=== PATIENT | female | born 1980 | race Caucasian/White ===

== ENCOUNTER 2016-07-01 07:39 | Day surgery (SDC) | payer OTHER ==
[2016-07-01] MEDS ORDERED: LACTATED RINGERS 1,000 ML IV ONE ×2 (07:57→10:15)
[2016-07-01] MEDS ORDERED: MIDAZOLAM 2 MG/2 ML VIAL IVP ONE (09:08)
[2016-07-01] MEDS ORDERED: fentaNYL 250 MCG/5 ML VIAL IVP ONE (09:08)
== END 2016-07-01 07:40 | disposition home or self-care (01) ==
PROC: 0DB68ZX Excision of Stomach, Via Natural or Artificial Opening Endoscopic, Diagnostic (ICD-10-PCS; 2016-07-01)
PROC: 0DB28ZX Excision of Middle Esophagus, Via Natural or Artificial Opening Endoscopic, Diagnostic (ICD-10-PCS; principal; 2016-07-01 09:00)
DX: R10.11 Right upper quadrant pain (principal); K21.9 Gastro-esophageal reflux disease without esophagitis; K31.89 Other diseases of stomach and duodenum
CPT/HCPCS: 43239; 81025; J3010; J7120

== ENCOUNTER 2016-09-10 18:38 | Emergency (ER) | payer OTHER ==
[2016-09-10] MEDS ORDERED: SODIUM CHLORIDE 0.9% 1,000 ML IV ONE (19:14)
[2016-09-10] MEDS ORDERED: KETOROLAC 60 MG/2 ML VIAL IVP STA (19:15)
[2016-09-10] MEDS ORDERED: KETOROLAC 30 MG/ML VIAL ONE (19:26)
[2016-09-10] MEDS ORDERED: IOPAMIDOL-300 100 ML VIAL IVP ONE (20:13)
[2016-09-10] MEDS ORDERED: cefTRIAXone 1 GM in SODIUM CHLORIDE 0.9% MINIBAG 100 ML IV STA (21:10)
[2016-09-10] MEDS ORDERED: cefTRIAXone 1 GM VIAL ONE (21:12)
== END 2016-09-10 21:46 | disposition home or self-care (01) ==
DX: N12 Tubulo-interstitial nephritis, not specified as acute or chronic (principal); K76.9 Liver disease, unspecified; K76.0 Fatty (change of) liver, not elsewhere classified; E11.9 Type 2 diabetes mellitus without complications; Z79.84 Long term (current) use of oral hypoglycemic drugs; K21.9 Gastro-esophageal reflux disease without esophagitis
CPT/HCPCS: 36415; 74177; 80053; 81001; 81025; 83690; 85025; 87086; 96374; 96375; 99283; 99285; Q9967

== ENCOUNTER 2016-09-14 13:44 | Emergency (ER) | payer OTHER | END 2016-09-14 16:27 | disposition home or self-care (01) | DX: N12 Tubulo-interstitial nephritis, not specified as acute or chronic (principal); R03.0 Elevated blood-pressure reading, without diagnosis of hypertension; E11.9 Type 2 diabetes mellitus without complications; K21.9 Gastro-esophageal reflux disease without esophagitis; Z79.84 Long term (current) use of oral hypoglycemic drugs ==

== ENCOUNTER 2017-11-03 08:30 | Emergency (ER) | payer OTHER ==
--- NOTE | 2017-11-03 10:18 | ED Physician Documentation ---
PD HPI UPPER EXT INJURY - Stated complaint Stated Complaint: SWOLLEN ARM/POST PROCEDURE - Chief complaint Chief Complaint: Ext Problem - History obtained from History obtained from: Patient - History of Present Illness Location: Right, Forearm Type of injury: Other (angiogram) Where injury occurred: Other ([facility]) Timing - onset: Yesterday Timing - duration: Days (1) Timing - details: Gradual onset, Still present Improved by: Rest, Immobilization Worsened by: Moving, Palpating Associated symptoms: Tingling, Swelling Contributing factors: No: Anticoagulated Similar symptoms before: Has not had sx before Recently seen: Other - Additonal information Additional information: 37-year-old female had an angiogram done through her right wrist through the radial artery 2 days ago and she is come to the emergency department today with some swelling to the forearm some tenderness and some numbness to her fingers. She is able to move the fingers she does not have exquisite pain and she does have sensation distally. She has adequate blood flow distally. Review of Systems Constitutional: denies: Fever Eyes: denies: Decreased vision Ears: denies: Ear pain Nose: denies: Congestion Cardiac: denies: Chest pain / pressure Respiratory: denies: Dyspnea, Cough GI: denies: Nausea, Vomiting Skin: denies: Rash Musculoskeletal: reports: Extremity pain, Extremity swelling. denies: Neck pain Neurologic: reports: Numbness. 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, Other Cardiovascular: Other HEENT: Other - Present Medications Home Medications: Ambulatory Orders Medication Instructions Recorded Confirmed Metformin HCl [Glumetza] 1,000 mg PO BID 09/25/12 09/14/16 Gabapentin 300 mg PO DAILY 09/10/16 09/14/16 Exenatide Microspheres [Bydureon 11/03/17 Pen] Glipizide 4 mg 11/03/17 - Allergies Allergies/Adverse Reactions: Allergies Allergy/AdvReac Type Severity Reaction Status Date / Time adhesive tape Allergy Mild Rash Verified 11/03/17 08:47 insulin detemir Allergy Mild Unknown Verified 11/03/17 08:47 [From Levemir U-100 Insulin] erythromycin base Allergy fever, Verified 09/14/16 14:00 [Erythromycin Base] vomiting - Social History Does the pt smoke?: No Smoking Status: Never smoker Does the pt drink ETOH?: No Does the pt have substance abuse?: No - Immunizations Immunizations are current?: Yes - POLST Patient has POLST: No PD ED PE NORMAL - Vitals Vital signs reviewed: Yes (hypertensive mild diastolic only ) - General General: Alert and oriented X 3, No acute distress, Well developed/nourished - HEENT HEENT: Atraumatic, PERRL, EOMI - Neck Neck: Supple, no meningeal sign - Respiratory Respiratory: No respiratory distress - Derm Derm: Normal color, Warm and dry, No rash - Extremities Extremities: No deformity, Other (There is mild swelling of the forearm on the right with firmness but not hard and she is able to move the fingers without much increase in pain and the distal n/v is intact. ) - Neuro Neuro: No motor deficit, No sensory deficit Eye Opening: Spontaneous Motor: Obeys Commands Verbal: Oriented GCS Score: 15 - Psych Psych: Normal mood, Normal affect Results - Vitals Vitals: Vital Signs - 24 hr 11/03/17 11/03/17 08:41 13:00 Temperature 36.1 C L Heart Rate 99 90 Respiratory 18 18 Rate Blood Pressure 117/85 H 116/84 H O2 Saturation 100 100 Oxygen O2 Source Room air - Rads (name of study) duplex upper right Radiology: Prelim report reviewed (Impression: 1. Right upper extremity arteries show normal velocities and spectral waveforms without evidence of focal stenosis or occlusion. No pseudoaneurysm or hematoma is evident. No sonographic findings to explain swelling.), EMP read indepedently, See rad report PD MEDICAL DECISION MAKING - ED course Complexity details: reviewed results, re-evaluated patient, considered differential, d/w patient, d/w family, d/w outside solar sales consultant (labor relations officer for [facility]. ) ED course: 37-year-old female with a recent arterial procedure on the right forearm has some mild swelling to the arm and no evidence of hematoma or pseudoaneurysm or abnormality of the artery itself. She is administered dexamethasone orally for reduction in the swelling and she is warned strictly about reasons to return to the emergency department regarding compartment syndrome. The on-call grave cleaner for Dr. Adam was consulted in the case and recommends the warnings. - Sepsis Event Vital Signs: Vital Signs - 24 hr 11/03/17 11/03/17 08:41 13:00 Temperature 36.1 C L Heart Rate 99 90 Respiratory 18 18 Rate Blood Pressure 117/85 H 116/84 H O2 Saturation 100 100 Oxygen O2 Source Room air Departure - Departure Disposition: 01 Home, Self Care Clinical Impression: Swelling of right extremity Condition: Stable Instructions: ED Compartment Syndrome At Risk For Follow-Up: DENISE FRIAS [Primary Care Provider] - Discharge Date/Time: 11/03/17 13:00
--- NOTE | 2017-11-03 11:58 | Ultrasound Report ---
Procedure Date: 11/03/2017 Accession Number: [id number] / [id number] Procedure: US - Duplex Upr Ext Arterial RT CPT Code: FULL RESULT: EXAM: RIGHT UPPER EXTREMITY ARTERIAL DOPPLER ULTRASOUND EXAM DATE: 11/03/2017 10:47 AM. CLINICAL HISTORY: Swelling post angio to radial artery. COMPARISON: None. TECHNIQUE: Real-time sonographic vascular imaging was performed by the orthodontist vice president, utilizing color-flow, Doppler flow, and spectral analysis. Multiple phlebotomy services representative static images were saved for review. FINDINGS: RIGHT Subclavian Prox: 105 cm/s Subclavian Dist: 70 cm/s Axillary Mid: 66 cm/s Brachial Prox: 72 cm/s Brachial Dist: 70 cm/s Radial Prox: 43 cm/s Radial Dist: 69 cm/s Ulnar Prox: 50 cm/s Ulnar Dist: 61 cm/s IMPRESSION: 1. Right upper extremity arteries show normal velocities and spectral waveforms without evidence for focal stenosis or occlusion. 2. No pseudoaneurysm or hematoma evident. 3. No sonographic findings to explain swelling. RADIA
[2017-11-03] MEDS ORDERED: DEXAMETHASONE 10 MG/ML VIAL PO STA (12:26)
[2017-11-03] MEDS ORDERED: CHERRY SYRUP 10 ML UDC PO ONE (12:47)
[2017-11-03 13:01] VITALS: BP 116/84
== END 2017-11-03 13:00 | disposition home or self-care (01) ==
LOC: ED 08:30
DX: R22.31 Localized swelling, mass and lump, right upper limb (principal); E11.9 Type 2 diabetes mellitus without complications; Z79.84 Long term (current) use of oral hypoglycemic drugs
CPT/HCPCS: 93931; 99283; A9270

== ENCOUNTER 2017-11-10 08:33 | Emergency (ER) | payer OTHER ==
[2017-11-10 08:42] VITALS: BP 122/84
[2017-11-10] MEDS: DEXAMETHASONE 10 MG/ML VIAL PO STA (09:14)
--- NOTE | 2017-11-10 09:14 | ED Physician Documentation ---
PD HPI UPPER EXT INJURY - Stated complaint Stated Complaint: R ARM PX - Chief complaint Chief Complaint: General - History obtained from History obtained from: Patient - History of Present Illness Location: Right, Forearm Type of injury: Other (angio done through the radial artery) Where injury occurred: Other ([place]) Timing - onset: How many days ago (9) Timing - duration: Days (9) Timing - details: Abrupt onset, Still present Improved by: Rest, Meds Worsened by: Moving, Palpating Associated symptoms: Weakness, Numbness Contributing factors: No: Anticoagulated Similar symptoms before: Has not had sx before Recently seen: Emergency Dept, Other - Additonal information Additional information: 37-year-old female has had a recent angiogram done through the right radial artery. 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 She had some firmness to the forearm and an ultrasound done demonstrated no evidence of acute bleeding or pseudoaneurysm. She was administered a dose of dexamethasone here in the emergency department 1 week ago and this resulted in improvement in her symptoms right away and a decrease in the firmness to the swelling but she continues to have pain. She is having some numbness to her fingertips she has not regained full purchaser automotive parts strength and she went to see her primary care doctor who sent her back to the emergency department for further treatment. She has called the oxygen furnace operator's office and they have referred her back to her primary. 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 Review of Systems Constitutional: denies: Fever Eyes: denies: Decreased vision Ears: denies: Ear pain Nose: denies: Congestion Cardiac: denies: Palpitations Respiratory: denies: Dyspnea, Cough GI: denies: Vomiting Musculoskeletal: reports: Extremity pain. denies: Neck pain, Back pain, Extremity swelling Neurologic: reports: Focal weakness, Numbness. 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, Other Cardiovascular: Other HEENT: Other - Present Medications Home Medications: Ambulatory Orders Medication Instructions Recorded Confirmed Metformin HCl [Glumetza] 1,000 mg PO BID 09/25/12 09/14/16 Gabapentin 300 mg PO DAILY 09/10/16 09/14/16 Exenatide Microspheres [Bydureon 2 mg SUBQ ONCE 11/03/17 Pen] Glipizide 4 mg 11/03/17 HYDROcod/ACETAM 5/325 [[place] 5/325] 1 - 2 ea PO Q6H PRN #15 tablet 11/10/17 - Allergies Allergies/Adverse Reactions: Allergies Allergy/AdvReac Type Severity Reaction Status Date / Time adhesive tape Allergy Mild Rash Verified 11/10/17 08:42 insulin detemir Allergy Mild Unknown Verified 11/10/17 08:42 [From Levemir U-100 Insulin] erythromycin base Allergy fever, Verified 11/10/17 08:42 [Erythromycin Base] vomiting - Social History Does the pt smoke?: No Smoking Status: Never smoker Does the pt drink ETOH?: No Does the pt have substance abuse?: No - Immunizations Immunizations are current?: Yes - POLST Patient has POLST: No PD ED PE NORMAL - Vitals Vital signs reviewed: Yes (diastolic hypertension mild ) - General General: Alert and oriented X 3, No acute distress, Well developed/nourished - HEENT HEENT: Atraumatic, PERRL - Neck Neck: Supple, no meningeal sign - Respiratory Respiratory: No respiratory distress - Derm Derm: Normal color, Warm and dry, No rash - Extremities Extremities: No deformity, No edema, Other (The right forearm is palpated and now is less tender and no longer firm. There is no specific swelling noted to the forearm and the distal vascular is intact. There is subjective numbess to the finger tips of the index and middle fingers and the ulnar aspect of the thumb. There is decreased strength to the purchaser automotive parts on the right with preserved articulation. ) - Neuro Neuro: Alert and oriented X 3, hvac technician residential 2-12 intact, Normal speech Eye Opening: Spontaneous Motor: Obeys Commands Verbal: Oriented GCS Score: 15 - Psych Psych: Normal mood, Normal affect Results - Vitals Vitals: Vital Signs - 24 hr 11/10/17 08:38 Temperature 36.6 C Heart Rate 87 Respiratory 18 Rate Blood Pressure 122/84 H O2 Saturation 99 Oxygen O2 Source Room air Procedures - Splint (location) right forearm Splint applied by: Tech Type of splint: Fiberglass, Volar cock up Other: Patient tolerated well, No complications, Neurovascular intact, Good alignment PD MEDICAL DECISION MAKING - ED course Complexity details: reviewed old records, reviewed results, re-evaluated patient , considered differential, d/w patient ED course: 37 y/o female with forearm pain after an angiogram has improvement in her exam and by interval history she is improved but not resolved. The firmness to the forearm is now resolved and the fear of compartment syndrome is over. She may take another week to resolve symptoms and we will be aggressive about supportive care. We have placed her into a volar splint and given a second dose of decadron and we will provider her with some pain medication for use at night and we have an expectation of continued improvement over the next week followed by slower improvement over the next month. She feels she will be able to get along at work in her current state. - Sepsis Event Vital Signs: Vital Signs - 24 hr 11/10/17 08:38 Temperature 36.6 C Heart Rate 87 Respiratory 18 Rate Blood Pressure 122/84 H O2 Saturation 99 Oxygen O2 Source Room air Departure - Departure Disposition: 01 Home, Self Care Clinical Impression: Swelling of right extremity Condition: Stable Instructions: ED Contusion Soft Tissue Follow-Up: DENISE FRIAS [Primary Care Provider] - Prescriptions: HYDROcod/ACETAM 5/325 [[place] 5/325] 1 - 2 ea PO Q6H PRN #15 tablet PRN Reason: Pain Comments: Today it appears that your risk for compartment syndrome is over. We expect this will still take another week to improve further and following that it may be a longer period of time to Complete resolution of symptoms of numbness to the fingertips and complete strength of the purchaser automotive parts. Wear the splint for comfort and he may remove it at any time and I encouraged removal several times per day for range of motion exercises.
[2017-11-10] MEDS ORDERED: CHERRY SYRUP 10 ML UDC PO ONE (09:24)
== END 2017-11-10 09:29 | disposition home or self-care (01) ==
LOC: ED 08:33
DX: M79.89 Other specified soft tissue disorders (principal); E11.9 Type 2 diabetes mellitus without complications; Z79.84 Long term (current) use of oral hypoglycemic drugs; Z98.62 Peripheral vascular angioplasty status
CPT/HCPCS: 29125; 99283; A9270